=== PATIENT | male | born 1965 | race Caucasian/White ===

== ENCOUNTER 2018-09-21 02:54 | Emergency (ER) | payer MEDICARE, OTHER | END 2018-09-21 03:12 | disposition home or self-care (01) | LOC: BURERS 02:54 | DX: M54.5 Low back pain (principal); F11.20 Opioid dependence, uncomplicated; I10 Essential (primary) hypertension; E78.5 Hyperlipidemia, unspecified; Z79.899 Other long term (current) drug therapy | CPT/HCPCS: 99283 ==